=== PATIENT | female | born 1945 | race Hispanic/Latino ===

== ENCOUNTER 2023-11-19 00:36 | Inpatient (IN) | payer OTHER, SELFPAY ==
[~2023-11-19] VITALS: Ht 149.9 cm; Wt 55.7 kg
[2023-11-19 01:13] LABS: BASOPHILS # (AUTO) 0.05 K/uL (0.00-0.20); BASOPHILS % (AUTO) 0.6 % (0.0-5.0); EOSINOPHILS # (AUTO) 0.31 K/uL (0.00-0.70); EOSINOPHILS % (AUTO) 3.5 % (0.0-8.0); HEMATOCRIT 35.9 % (36-48); IMMATURE GRANULOCYTE ABSOLUTE 0.03 K/uL (0-1); LYMPHOCYTES # (AUTO) 2.5 K/uL (1.0-4.8); LYMPHOCYTES % (AUTO) 28.3 % (21.0-51.0); MEAN CORPUSCULAR HEMOGLOBIN 29.5 pg (27.0-33.0); MEAN CORPUSCULAR HGB CONC 32.3 g/dL (32.0-36.0); MEAN CORPUSCULAR VOLUME 91.3 fL (79-99); MONOCYTES # (AUTO) 0.7 K/uL (0.1-1.0); MONOCYTES % (AUTO) 8.1 % (3.0-13.0); NEUTROPHILS # (AUTO) 5.3 K/uL (1.8-7.7); NEUTROPHILS % (AUTO) 59.2 % (40.0-77.0); PLATELET COUNT (AUTO) 245 K/uL (130-400); RED BLOOD CELL COUNT(AUTO) 3.93 MIL/uL (4.00-5.50); RED CELL DISTRIBUTION WIDTH 12.6 % (11.0-15.5); WHITE BLOOD COUNT (AUTO) 8.9 K/uL (4.8-10.8)
[2023-11-19 01:25] LABS: POTASSIUM 4.3 mmol/L (3.5-5.1)
[2023-11-19 01:30] LABS: ALBUMIN 3.4 g/dL (3.5-5.0); BILIRUBIN,TOTAL 0.4 mg/dL (0.2-1.0); TOTAL PROTEIN, SERUM 7.1 g/dL (6.0-8.3)
[2023-11-19] MEDS ORDERED: MORPHINE 2 MG SYG IVP ONE (02:00)
[2023-11-19 03:55] LABS: APPEARANCE,URINE CLEAR (CLEAR); BILIRUBIN,URINE NEGATIVE (NEGATIVE); COLOR,URINE LIGHT-YELLOW (YELLOW); GLUCOSE, URINE (UA) NEGATIVE (NEGATIVE); KETONES,URINE NEGATIVE (NEGATIVE); LEUKOCYTE ESTERASE ,URINE NEGATIVE Leu/uL (NEGATIVE); NITRATE,URINE NEGATIVE (NEGATIVE); OCCULT BLOOD,URINE NEGATIVE (NEGATIVE); PH,URINE 5.5 (5.0-8.0); PROTEIN,URINE NEGATIVE (NEGATIVE); UROBILINOGEN,URINE 0.2 mg/dL (0.2-1.0)
[2023-11-19 03:58] LABS: ADD UA MICROSCOPIC NO
[2023-11-19] MEDS ORDERED: 0.9%NACL 1000ML 1,000 ML IV ONE (08:00)
[2023-11-19] MEDS ORDERED: 0.9%NACL 50ML IV SCH (08:00)
[2023-11-19] MEDS ORDERED: ISOS10TA2 PO (08:02)
[2023-11-19] MEDS ORDERED: ENAL-89 PO (08:02)
[2023-11-19] MEDS: ZOSYN 3.375GM +NS 50ML IVPB SCH ×3 (08:19→23:20)
[2023-11-19 09:24] LABS: INR 0.94 (0.85-1.15); PROTHROMBIN TIME 10.9 SEC (9.6-11.6)
[2023-11-19 09:25] LABS: PARTIAL THROMBOPLASTIN TIME 26.2 SEC (26.3-35.5)
[2023-11-19 09:35] LABS: THYROID STIMULATING HORMONE 8.4 uIU/mL (0.36-3.74)
[2023-11-19 09:41] LABS: HEMOGLOBIN A1C 6.9 % (4.0-6.0)
[2023-11-19] MEDS: INSULIN HUMULIN R 100 UNIT/ML 3ML SQ SCH ×3 (12:00→23:24)
[2023-11-19 19:07] LABS: CREATININE 0.7 mg/dL (0.5-1.5)
[2023-11-19 22:05] VITALS: BP 131/72; PULSE 66; RESP 20
[2023-11-19] MEDS: MORPHINE 2 MG SYG IVP PRN (23:20)
[2023-11-20] VITALS (27 sets, daily range): BP systolic 95–151; BP diastolic 50–97; PULSE 55–70; RESP 12–20; O2SAT 98
[2023-11-20] MEDS: INSULIN HUMULIN R 100 UNIT/ML 3ML SQ SCH ×4 (05:37→23:34)
[2023-11-20 06:27] LABS: BASOPHILS # (AUTO) 0.07 K/uL (0.00-0.20); BASOPHILS % (AUTO) 1.2 % (0.0-5.0); EOSINOPHILS # (AUTO) 0.36 K/uL (0.00-0.70); EOSINOPHILS % (AUTO) 6.1 % (0.0-8.0); HEMATOCRIT 33.9 % (36-48); IMMATURE GRANULOCYTE ABSOLUTE 0.02 K/uL (0-1); LYMPHOCYTES # (AUTO) 2.2 K/uL (1.0-4.8); LYMPHOCYTES % (AUTO) 37.2 % (21.0-51.0); MEAN CORPUSCULAR HGB CONC 32.7 g/dL (32.0-36.0); MEAN CORPUSCULAR VOLUME 91.6 fL (79-99); MONOCYTES # (AUTO) 0.7 K/uL (0.1-1.0); MONOCYTES % (AUTO) 11.7 % (3.0-13.0); NEUTROPHILS # (AUTO) 2.6 K/uL (1.8-7.7); NEUTROPHILS % (AUTO) 43.5 % (40.0-77.0); PLATELET COUNT (AUTO) 218 K/uL (130-400); RED CELL DISTRIBUTION WIDTH 12.6 % (11.0-15.5); WHITE BLOOD COUNT (AUTO) 5.9 K/uL (4.8-10.8)
[2023-11-20 06:49] LABS: BILIRUBIN,TOTAL 0.6 mg/dL (0.2-1.0); CREATININE 0.8 mg/dL (0.5-1.5); POTASSIUM 4.1 mmol/L (3.5-5.1); TOTAL PROTEIN, SERUM 6.5 g/dL (6.0-8.3)
[2023-11-20] MEDS ORDERED: INDOMETHACIN 100 MG SUPP.RECT RC ONE (07:30)
[2023-11-20] MEDS: ZOSYN 3.375GM +NS 50ML IVPB SCH ×3 (07:58→23:34)
[2023-11-20] MEDS ORDERED: IOHEXOL-350 50ML VIAL IV ONE (08:38)
[2023-11-20] MEDS ORDERED: ONDANSETRON 4MG INJ ONE (09:05)
[2023-11-20] MEDS ORDERED: LIDOCAINE PF 100MG/5ML (2%) SYRINGE 5ML ONE (09:05)
[2023-11-20] MEDS ORDERED: SUCCINYLCHOLINE CHLORIDE 20 MG/ML 10 ML VIAL ONE (09:05)
[2023-11-20] MEDS ORDERED: KETAMINE 50MG/ML SYRINGE 50 MG/ML DISP.SYRIN ONE (09:06)
[2023-11-20] MEDS ORDERED: PROPOFOL 10 MG/ML 20ML VIAL IV ONE (09:06)
[2023-11-20] MEDS ORDERED: DOCUSATE SODIUM 100 MG CAP PO PRN (12:00)
[2023-11-21] VITALS (8 sets, daily range): BP systolic 98–135; BP diastolic 54–71; PULSE 62–74; RESP 16–20; O2SAT 97–98
[2023-11-21] MEDS: MORPHINE 2 MG SYG IVP PRN ×2 (01:29→20:45)
[2023-11-21] MEDS: INSULIN HUMULIN R 100 UNIT/ML 3ML SQ SCH ×3 (05:32→18:00)
[2023-11-21] MEDS: ZOSYN 3.375GM +NS 50ML IVPB SCH ×3 (08:38→23:53)
[2023-11-22 04:00] VITALS: BP 99/34; PULSE 65; RESP 16
[2023-11-22 04:26] LABS: HEMATOCRIT 33.7 % (36-48); MEAN CORPUSCULAR HEMOGLOBIN 29.1 pg (27.0-33.0); MEAN CORPUSCULAR HGB CONC 31.8 g/dL (32.0-36.0); MEAN CORPUSCULAR VOLUME 91.6 fL (79-99); RED BLOOD CELL COUNT(AUTO) 3.68 MIL/uL (4.00-5.50); RED CELL DISTRIBUTION WIDTH 12.5 % (11.0-15.5)
[2023-11-22 04:40] VITALS: BP 110/59; PULSE 67
[2023-11-22 04:51] LABS: ALBUMIN 2.8 g/dL (3.5-5.0); BILIRUBIN,DIRECT 0.2 mg/dL (0.0-0.3); BILIRUBIN,TOTAL 0.5 mg/dL (0.2-1.0); CREATININE 0.8 mg/dL (0.5-1.5); POTASSIUM 3.5 mmol/L (3.5-5.1); TOTAL PROTEIN, SERUM 6.1 g/dL (6.0-8.3)
[2023-11-22] MEDS: INSULIN HUMULIN R 100 UNIT/ML 3ML SQ SCH ×5 (05:10→23:29)
[2023-11-22 08:00] VITALS: BP 102/57; PULSE 72; RESP 17; O2SAT 97
[2023-11-22] MEDS: ZOSYN 3.375GM +NS 50ML IVPB SCH ×3 (08:28→23:42)
[2023-11-22] MEDS: ISOSORBIDE DINITRATE 10MG TAB PO SCH (09:00)
[2023-11-22] MEDS: ENALAPRIL MALEATE 10 MG TABLET PO SCH (09:00)
[2023-11-22] MEDS: MORPHINE 2 MG SYG IVP PRN (18:40)
[2023-11-22 19:00] VITALS: BP 111/58; PULSE 64; RESP 16
[2023-11-22 20:00] VITALS: O2SAT 97
[2023-11-22 23:00] VITALS: BP 106/57; PULSE 65; RESP 16
[2023-11-23 04:00] VITALS: BP 121/63; PULSE 63; RESP 16
[2023-11-23 04:56] LABS: HEMATOCRIT 34.3 % (36-48); MEAN CORPUSCULAR HEMOGLOBIN 29.4 pg (27.0-33.0); MEAN CORPUSCULAR HGB CONC 32.4 g/dL (32.0-36.0); RED BLOOD CELL COUNT(AUTO) 3.77 MIL/uL (4.00-5.50); RED CELL DISTRIBUTION WIDTH 12.7 % (11.0-15.5); WHITE BLOOD COUNT (AUTO) 6.9 K/uL (4.8-10.8)
[2023-11-23 05:11] LABS: ALBUMIN 2.9 g/dL (3.5-5.0); BILIRUBIN,TOTAL 0.5 mg/dL (0.2-1.0); CREATININE 0.7 mg/dL (0.5-1.5); POTASSIUM 3.5 mmol/L (3.5-5.1); TOTAL PROTEIN, SERUM 6.3 g/dL (6.0-8.3)
[2023-11-23] MEDS: INSULIN HUMULIN R 100 UNIT/ML 3ML SQ SCH (05:12)
[2023-11-23 08:00] VITALS: BP 102/59; PULSE 70; RESP 18
[2023-11-23 08:10] VITALS: O2SAT 98
[2023-11-23] MEDS: ZOSYN 3.375GM +NS 50ML IVPB SCH (08:57)
[2023-11-23] MEDS: ENALAPRIL MALEATE 10 MG TABLET PO SCH (08:59)
[2023-11-23] MEDS: ISOSORBIDE DINITRATE 10MG TAB PO SCH (08:59)
[2023-11-23] MEDS ORDERED: PANT20TA PO (11:33)
[2023-11-23 12:00] VITALS: BP 127/59; PULSE 66; RESP 20
== END 2023-11-23 14:20 | disposition home or self-care (01) | DRG 446 ==
LOC: EDH 00:36 → EDHIP 00:37 → 3AH 21:00
PROVIDERS: ADMIT Internal Medicine; ATTEND Internal Medicine
PROC: 0FPB8DZ Removal of Intraluminal Device from Hepatobiliary Duct, Via Natural or Artificial Opening Endoscopic (ICD-10-PCS; principal; 2023-11-20)
PROC: 0F798DZ Dilation of Common Bile Duct with Intraluminal Device, Via Natural or Artificial Opening Endoscopic (ICD-10-PCS; 2023-11-20)
DX: K80.50 Calculus of bile duct without cholangitis or cholecystitis without obstruction (principal); E11.9 Type 2 diabetes mellitus without complications; I25.10 Atherosclerotic heart disease of native coronary artery without angina pectoris; K59.00 Constipation, unspecified; E03.9 Hypothyroidism, unspecified; E78.00 Pure hypercholesterolemia, unspecified; I10 Essential (primary) hypertension; I25.2 Old myocardial infarction; Z82.49 Family history of ischemic heart disease and other diseases of the circulatory system; Z90.49 Acquired absence of other specified parts of digestive tract
CPT/HCPCS: 36415; 43262; 43264; 43276; 74176; 74181; 74330; 76705; 80048; 80053; 80076; 81003; 82948; 83036; 83690; 83735; 84145; 84443; 84484; 85025; 85027; 85610; 85730; 86140; 93005; C1769; C1773; C2625; G0378; J0330; J2001; J2270; J2405; J2543; J2704; J7030; Q9967; A4215; A4222; A4223; A4657; A7002; J3490; S8037